=== PATIENT | female | born 1950 | race Caucasian/White ===

== ENCOUNTER 2018-04-26 15:19 | Emergency (ER) | payer MEDICARE, OTHER ==
--- NOTE | 2018-04-26 15:36 | EDM.PDOC ---
ED HPI GENERAL MEDICAL PROBLEM - General Chief Complaint: Upper Extremity Injury/Pain Stated Complaint: Left shoulder injury/pain; fall on ice Time Seen by Provider: 04/26/18 15:22 Source of Information: Reports: Patient, EMS Notes Reviewed, RN, RN Notes Reviewed History Limitations: Reports: No Limitations - History of Present Illness INITIAL COMMENTS - FREE TEXT/NARRATIVE: Patient is brought to the ED at [facility] via EMS after the patient fell on ice getting out of her car. Patient states she slipped and fell, landing on her left shoulder. She denies any head injury/trauma. No previous left shoulder injuries. This fall happened at home. Patient denies any LOC. She remember the entire fall. She complains of pain over the AC joint. No left wrist or elbow pathology. Patient was offered pain medication and refused. Onset: Today, Sudden Onset Date: 04/26/18 Left Shoulder Pain Score (Numeric/FACES): 9 - Related Data Allergies Allergy/AdvReac Type Severity Reaction Status Date / Time albuterol [From Ventolin HFA] Allergy Cannot Verified 04/26/18 16:16 Remember aminophylline Allergy Cannot Verified 04/26/18 16:16 Remember atorvastatin [From Lipitor] Allergy Cannot Verified 04/26/18 16:16 Remember clindamycin [From Cleocin] Allergy Cannot Verified 04/26/18 16:16 Remember iodine Allergy Burning Verified 04/26/18 16:16 latex Allergy Burning Verified 04/26/18 16:16 midazolam [From Versed] Allergy Syncope Verified 04/26/18 16:16 naproxen [From Naprosyn] Allergy Cannot Verified 04/26/18 16:16 Remember povidone-iodine Allergy Burning Verified 04/26/18 16:16 [From Betadine] soap [From Betadine] Allergy Burning Verified 04/26/18 16:16 yellow dye Allergy Itching Verified 04/26/18 16:16 dexycycline Allergy Cannot Uncoded 04/26/18 16:16 Remember novacaine Allergy Cannot Uncoded 04/26/18 16:16 Remember phisophex Allergy Cannot Uncoded 04/26/18 16:16 Remember Home Meds: Home Meds Levothyroxine [Synthroid] 100 mcg DAILY 04/26/18 [History] Lisinopril/Hydrochlorothiazide [Zestoretic 20-12.5 mg Tablet] 1 tab DAILY [History] Review of Systems - Review of Systems Review Of Systems: See Below Constitutional: Denies: Chills, Fever Respiratory: Denies: Shortness of Breath, Cough Cardiovascular: Denies: Chest Pain, Palpitations Musculoskeletal: Reports: Shoulder Pain, Joint Pain, Muscle Pain. Denies: Neck Pain, Arm Pain, Back Pain, Hand Pain, Muscle Stiffness Skin: Reports: No Symptoms Neurological: Reports: No Symptoms ED EXAM, GENERAL - Physical Exam Exam: See Below Exam Limited By: No Limitations General Appearance: Alert, No Apparent Distress Respiratory/Chest: No Respiratory Distress, Lungs Clear, Normal Breath Sounds Cardiovascular: Normal Peripheral Pulses, Regular Rate, Rhythm Peripheral Pulses: 2+: Radial (L), Radial (R) Back Exam: Normal Inspection, Other (Normal range of motion) Extremities: Normal Inspection, Normal Capillary Refill, Limited Range of Motion (due to severe pain). No: Redness Neurological: Alert, Oriented Skin Exam: Warm, Dry, Intact, Normal Color Course - Vital Signs Last Recorded V/S: Last Vital Signs Temp 36.6 C 04/26/18 15:20 Pulse 108 H 04/26/18 15:20 Resp 20 04/26/18 15:20 BP 180/97 H 04/26/18 15:20 Pulse Ox 97 04/26/18 15:20 - Orders/Labs/Meds Meds: Medications Discontinued Medications Generic Name Dose Route Start Last Admin Trade Name Freq PRN Reason Stop Dose Admin Hydrocodone Bitart/Acetaminophen 1 tab 04/26/18 17:13 04/26/18 17:21 [place] 325-5 Mg PO 04/26/18 17:14 1 tab ONETIME ONE Administration Departure - Departure Time of Disposition: 17:30 Disposition: Home, Self-Care 01 Condition: Good Clinical Impression: Fracture of humeral head, closed Qualifiers: Encounter type: initial encounter Laterality: left Qualified Code(s): S42.292A - Other displaced fracture of upper end of left humerus, initial encounter for closed fracture Fall due to ice or snow Qualifiers: Encounter type: initial encounter Qualified Code(s): W00.9XXA - Unspecified fall due to ice and snow, initial encounter - Discharge Information *PRESCRIPTION DRUG MONITORING PROGRAM REVIEWED*: Not Applicable *COPY OF PRESCRIPTION DRUG MONITORING REPORT IN PATIENT RUPERT: Not Applicable Instructions: Humerus Fracture Treated With Immobilization Referrals: Luis Mitchell MD [Ordering Only Provider] - Forms: ED Department Discharge Additional Instructions: 1. Stay well hydrated and rest 2. Take pain medication as needed 3. Wear immobilizer at all times 4. Need to follow up with Ariela Wilson in one week 5. Call us with any questions or concerns ED Communication - ED Communication Date/Time Date: 04/26/18 Time Called: 16:44 - Discussed Case With (1) Discussed Case With (1): Outpatient Provider (Ariela Whitaker) - Conversation Summary Outpatient Provider Agreed to Follow-up on this Patient: Yes - Problem List Review Problem List Initiated/Reviewed/Updated: Yes - Assessment/Plan Assessment:: Left humeral head fracture Plan: Case discussed with Ariela Rodriguez Lovilia. Recommend shoulder immobilizer and f/u with Ortho in one week in clinic. No surgical intervention at this point.
--- NOTE | 2018-04-26 16:19 | CR ---
[id number] RAD/RAD Shoulder Left 2V Min Exam: RAD Shoulder Left 2V Min Indication:FALL ON ICE, LEFT SHOULDER INJURY AND PAIN. Comparison: No prior imaging for comparison. Discussion: Advanced changes of glenohumeral osteoarthritis with bulky osteophytes and calcified debris in the axillary recess. 2 views of the shoulder demonstrate a possible humeral head fracture, seen only on the scapular Y view, as a subtle area of cortical irregularity along its posterior margin. No other evidence of a fracture. Bones are normal alignment. Diffuse bone demineralization. Impression: Possible humeral head fracture, described above. Tato Marin MD 04/26/18 1944 Thank you for allowing us to participate in the care of your patient.
[2018-04-26] MEDS ORDERED: Acetaminophen/HYDROcodone 325-5 MG Tab PO ONE (17:13)
[2018-04-26] MEDS ORDERED: Take Home: Acetaminophen/HYDROcodone 325-5 MG, 5 Tab Pack PO ONE (17:35)
== END 2018-04-26 18:15 | disposition home or self-care (01) ==
LOC: VM.ED 15:19
DX: S42.302A Unspecified fracture of shaft of humerus, left arm, initial encounter for closed fracture (principal); Z88.8 Allergy status to other drugs, medicaments and biological substances; Z91.040 Latex allergy status; Z88.1 Allergy status to other antibiotic agents; W01.0XXA Fall on same level from slipping, tripping and stumbling without subsequent striking against object, initial encounter
CPT/HCPCS: 73030-LT; 99283; 99283-GF; A9270-GY